=== PATIENT | male | born 1995 | race African-American/Black ===

== ENCOUNTER → 2017-12-05 | Outpatient (CLI) | payer OTHER ==
--- NOTE | 2017-12-05 15:31 | Diagnostic Imaging Report ---
Ventilation/perfusion lung scan Clinical Information: 21 M with ATKINS x several months. History of asthma as a child. Comparison: None Discussion: Xenon-133 gas 16.5 mCi was administered via inhalation. Dynamic images of the lungs in the posterior projection were obtained through single breath, equilibrium, and washout phases. Distribution of tracer activity appears physiologic throughout the lungs.. There are no segmental ventilatory defects. Washout of tracer is diffusely delayed with no evidence of air trapping. Perfusion images of the lungs were obtained in multiple projections following intravenous administration of approximately 6.5 mCi of Tc-99m MAA. Distribution of tracer appears physiologic throughout the lungs. The contours of the lungs are well demarcated. There are no segmental perfusion defects of any size. The cardiomediastinal silhouette is unremarkable. Impression: 1. Normal perfusion lung scan. Scan findings represent a VERY LOW probability for acute pulmonary embolic disease based on the PIOPED II criteria. 2. Ventilation images shows obstructive lung disease. This may be related to patient's history of asthma. 3. Normal perfusion lung scan excludes chronic thromboembolic pulmonary hypertension. Signed by: Dr. Harika Ireland M.D. on 12/05/2017 3:27 PM
--- NOTE | 2017-12-06 11:21 | Pulmonary Function Test ---
DATE OF STUDY: December 05, [address] Crump. Normal spirometry. Forced vital capacity 3.65 liters, 85% of predicted. FEV1 3.63 liters, 98%. FEV-1:FVC ratio 100%. FEF 25/75, 127%. Post exercise, spirometry was not performed. Diffusion capacity is preserved 31.75, 92% of predicted. Lung volumes are slightly reduced 4.14, 73% of predicted. Just is a mild restriction. Job#: [id number] EV
--- NOTE | 2017-12-08 16:53 | Pulmonary Function Test ---
DATE OF STUDY: December 05, 2017 ADDENDUM Lung volumes are slightly reduced. Total lung capacity 4.14 liters, 73% of predicted that suggests mild restriction. Restriction may be secondary to morbid obesity, congestive heart failure, parenchymal pulmonary disease, neuromuscular disease, diaphragmatic disease, pleural disease or chest wall disease. Clinical correlation required. Job#: [id number] MIREYA
== END ==
LOC: NM 08:00
PROVIDERS: ATTEND Internal Medicine Pulmonary Disease
DX: R06.09 Other forms of dyspnea (principal)
CPT/HCPCS: 78582; 94010; 94727; 94729; A9540; A9558

== ENCOUNTER → 2017-12-16 | Outpatient (CLI) | payer OTHER ==
--- NOTE | 2017-12-16 08:29 | Diagnostic Imaging Report ---
PROCEDURE: CT CHEST WITHOUT CONTRAST CT scan of the chest WITHOUT intravenous contrast, using interstitial lung disease protocol protocol. TECHNIQUE: The chest was scanned utilizing a multidetector helical scanner from the apex to the level of the adrenal glands. No IV contrast was administered because of ILD protocol. Prone, inspiratory, and expiratory imaging was obtained. Coronal and sagittal multiplanar reformations were obtained. COMPARISON: Coronary CTA 01/17/2017. INDICATIONS: DYSPNEA ON EXERTION FINDINGS: Lines/tubes: None. Lungs and Airways: The lungs and airways are normal with no focal abnormality demonstrated. Specifically, there is no evidence of air-trapping, consolidation, groundglass opacity, nodule, or fibrotic change. Trachea, mainstem bronchi, lobar and segmental bronchi are patent, without filling defect. No bronchiectasis. Pleura: The pleural spaces are clear. Heart and mediastinum: The visualized portions of the thyroid gland are normal. Residual thymic tissue in the anterior mediastinum. Heart size is normal. No ectasia or aneurysmal dilatation of the thoracic aorta. Pulmonary outflow tract is of normal caliber. No pericardial effusion. No axillary, hilar, or mediastinal lymphadenopathy. Soft tissues: Normal. Abdomen: A visualized portions of the liver, gallbladder, spleen, pancreas, adrenals, and kidneys are unremarkable Bones: No osseous structure lesions. IMPRESSION: Unremarkable noncontrast CT scan of the chest.. Dictated by: Addi Cordero M.D. on 12/16/2017 at 8:32 Electronically approved by: Addi Cordero M.D. on 12/16/2017 at 8:32
== END | disposition home or self-care (01) ==
LOC: CT 07:43
PROVIDERS: ATTEND Internal Medicine Pulmonary Disease
DX: R06.00 Dyspnea, unspecified (principal)
CPT/HCPCS: 71250